=== PATIENT | female | born 1970 | race Caucasian/White ===

== ENCOUNTER 2021-04-20 20:36 | Inpatient (IN) | payer BC, OTHER ==
[~2021-04-20] VITALS: Ht 154.9 cm; Wt 97.0 kg
[2021-04-20] MEDS ORDERED: ALBUTEROL 0.083% 2.5 MG/3 ML INH IH ONE ×2 (20:59→22:00)
[2021-04-20] MEDS ORDERED: IPRATROPIUM/ALBUTEROL SULFATE 3 ML SOLUTION IH PRN (21:00)
[2021-04-20] MEDS ORDERED: MAGNESIUM 2GM PREMIX 50ML 50 ML IV SCH (21:00)
[2021-04-20] MEDS ORDERED: IPRATROPIUM/ALBUTEROL SULFATE 3 ML SOLUTION IH ONE (21:08)
[2021-04-20 21:20] LABS: BASOPHILS % (AUTO) 0.6 % (0.0-5.0); EOSINOPHILS % (AUTO) 1.6 % (0.0-8.0); HEMATOCRIT 39.3 % (36-48); LYMPHOCYTES % (AUTO) 8.8 % (21.0-51.0); MEAN CORPUSCULAR HGB CONC 32.3 g/dL (32.0-36.0); MEAN CORPUSCULAR VOLUME 92.9 fL (79-99); MONOCYTES % (AUTO) 4.3 % (3.0-13.0); NEUTROPHILS % (AUTO) 84.4 % (40.0-77.0); PLATELET COUNT (AUTO) 242 K/uL (130-400); RED BLOOD CELL COUNT(AUTO) 4.23 MIL/uL (4.00-5.50); RED CELL DISTRIBUTION WIDTH 13.6 % (11.0-15.5); WHITE BLOOD COUNT (AUTO) 6.8 K/uL (4.8-10.8)
[2021-04-20 21:26] LABS: ABG BASE EXCESS -5.7 mmol/L (-2.0-3.0); ABG HCO3 18.9 mmol/L (21.0-28.0); ABG OXYGEN SATURATION 97.7 % (95.0-99.0); ABG PCO2 35 mmHg (32-45)
[2021-04-20 21:36] LABS: CREATININE 0.8 mg/dL (0.5-1.5); POTASSIUM 4.4 mmol/L (3.5-5.1)
[2021-04-20 21:43] LABS: ALBUMIN 3.8 g/dL (3.5-5.0); BILIRUBIN,TOTAL 0.6 mg/dL (0.2-1.0); MAGNESIUM 2.3 mg/dL (1.80-2.40); TOTAL PROTEIN, SERUM 7.8 g/dL (6.0-8.3)
[2021-04-20] MEDS ORDERED: SOLU-MEDROL 125MG VIAL IVP ONE (22:00)
[2021-04-20] MEDS ORDERED: 0.9%NACL 1000ML 1,000 ML IV ONE (22:00)
[2021-04-21] MEDS ORDERED: IPRATROPIUM/ALBUTEROL SULFATE 3 ML SOLUTION IH PRN
[2021-04-21] MEDS ORDERED: NITROGLYCERIN 0.4 MG SL TAB SL PRN
[2021-04-21] MEDS ORDERED: ACETAMINOPHEN 325 MG TAB PO PRN ×2
[2021-04-21] MEDS ORDERED: ONDANSETRON 4MG INJ IV PRN
[2021-04-21] MEDS: IPRATROPIUM/ALBUTEROL SULFATE 3 ML SOLUTION IH SCH ×5 (01:31→23:00)
[2021-04-21 02:59] LABS: HEMOGLOBIN A1C 5.9 % (4.0-6.0)
[2021-04-21 04:55] VITALS: BP 171/89
[2021-04-21 05:50] VITALS: BP 160/87
[2021-04-21 06:30] LABS: BASOPHILS % (AUTO) 0.2 % (0.0-5.0); HEMATOCRIT 37.9 % (36-48); LYMPHOCYTES % (AUTO) 8.5 % (21.0-51.0); MEAN CORPUSCULAR HEMOGLOBIN 30.2 pg (27.0-33.0); MEAN CORPUSCULAR HGB CONC 32.7 g/dL (32.0-36.0); MEAN CORPUSCULAR VOLUME 92.2 fL (79-99); PLATELET COUNT (AUTO) 224 K/uL (130-400); RED BLOOD CELL COUNT(AUTO) 4.11 MIL/uL (4.00-5.50); RED CELL DISTRIBUTION WIDTH 13.7 % (11.0-15.5); WHITE BLOOD COUNT (AUTO) 6.2 K/uL (4.8-10.8)
[2021-04-21 06:32] LABS: ABG BASE EXCESS -2.7 mmol/L (-2.0-3.0); ABG HCO3 21.9 mmol/L (21.0-28.0); ABG OXYGEN SATURATION 94.5 % (95.0-99.0); ABG PCO2 37 mmHg (32-45)
[2021-04-21 06:55] LABS: INR 1.06 (0.85-1.15); PROTHROMBIN TIME 11.5 SEC (9.6-11.6)
[2021-04-21 06:56] LABS: PARTIAL THROMBOPLASTIN TIME 25.1 SEC (26.3-35.5)
[2021-04-21 07:06] LABS: ALBUMIN 3.7 g/dL (3.5-5.0); BILIRUBIN,TOTAL 0.4 mg/dL (0.2-1.0); CREATININE 0.7 mg/dL (0.5-1.5); MAGNESIUM 2.5 mg/dL (1.80-2.40); POTASSIUM 3.9 mmol/L (3.5-5.1); TOTAL PROTEIN, SERUM 7.5 g/dL (6.0-8.3)
[2021-04-21 08:05] VITALS: BP 132/82
[2021-04-21] MEDS: ENOXAPARIN SODIUM 40 MG/0.4 ML SYRINGE SQ SCH (08:49)
[2021-04-21] MEDS ORDERED: FAMOTIDINE 20MG TAB PO SCH (09:00)
[2021-04-21] MEDS ORDERED: SOLU-MEDROL 125MG VIAL IVP SCH (10:00)
[2021-04-21 10:57] VITALS: BP 145/89
[2021-04-21] MEDS ORDERED: ALBUTEROL 0.083% 2.5 MG/3 ML INH IH PRN (11:00)
[2021-04-21] MEDS: BUDESONIDE 0.5 MG/2 ML INH IH SCH ×2 (11:36→23:00)
[2021-04-21] MEDS: PANTOPRAZOLE 40 MG TAB DR PO SCH (11:38)
[2021-04-21] MEDS: CETIRIZINE HCL 5 MG TABLET PO SCH (11:54)
[2021-04-21] MEDS: MONTELUKAST SODIUM 10 MG TAB PO SCH (11:54)
[2021-04-21] MEDS ORDERED: METH4TAB15 PO (12:15)
[2021-04-21] MEDS ORDERED: ADV250 IH (12:20)
[2021-04-21] MEDS ORDERED: CEFU500T67 PO (12:20)
[2021-04-21] MEDS ORDERED: ALBU0.63 IH (12:20)
[2021-04-21] MEDS ORDERED: IPRA3AMP24 IH (12:20)
[2021-04-21] MEDS ORDERED: GUAI-1211 PO (12:20)
[2021-04-21] MEDS ORDERED: MONT10TA32 PO (12:20)
[2021-04-21] MEDS: FLUTICASONE PROPIONATE 50MCG/SPRAY 16 GM BOTTLE EN SCH ×2 (13:43→21:44)
[2021-04-21 16:36] VITALS: BP 157/94
[2021-04-21 20:00] VITALS: BP 151/64
[2021-04-21] MEDS: SOLU-MEDROL 125MG VIAL IVP SCH (21:44)
[2021-04-22] VITALS: BP 123/69
[2021-04-22 04:00] VITALS: BP 116/78
[2021-04-22 05:41] LABS: HEMATOCRIT 38.5 % (36-48); MEAN CORPUSCULAR HEMOGLOBIN 29.5 pg (27.0-33.0); MEAN CORPUSCULAR HGB CONC 31.4 g/dL (32.0-36.0); MEAN CORPUSCULAR VOLUME 93.9 fL (79-99); RED BLOOD CELL COUNT(AUTO) 4.1 MIL/uL (4.00-5.50); RED CELL DISTRIBUTION WIDTH 13.9 % (11.0-15.5); WHITE BLOOD COUNT (AUTO) 9.8 K/uL (4.8-10.8)
[2021-04-22] MEDS: PANTOPRAZOLE 40 MG TAB DR PO SCH (05:50)
[2021-04-22 06:12] LABS: CREATININE 0.9 mg/dL (0.5-1.5); POTASSIUM 4.4 mmol/L (3.5-5.1)
[2021-04-22] MEDS: IPRATROPIUM/ALBUTEROL SULFATE 3 ML SOLUTION IH SCH ×3 (07:23→18:23)
[2021-04-22] MEDS: BUDESONIDE 0.5 MG/2 ML INH IH SCH (07:23)
[2021-04-22 08:06] VITALS: BP 134/78
[2021-04-22] MEDS: CETIRIZINE HCL 5 MG TABLET PO SCH (08:37)
[2021-04-22] MEDS: MONTELUKAST SODIUM 10 MG TAB PO SCH (08:37)
[2021-04-22] MEDS: ENOXAPARIN SODIUM 40 MG/0.4 ML SYRINGE SQ SCH (08:38)
[2021-04-22] MEDS: SOLU-MEDROL 125MG VIAL IVP SCH (08:38)
[2021-04-22] MEDS: FLUTICASONE PROPIONATE 50MCG/SPRAY 16 GM BOTTLE EN SCH (08:52)
[2021-04-22] MEDS ORDERED: MONT10TA32 PO (09:40)
[2021-04-22] MEDS ORDERED: PRED20TA3 PO (09:40)
[2021-04-22 13:16] VITALS: BP 136/79
[2021-04-22 16:29] VITALS: BP 140/75
== END 2021-04-22 18:27 | disposition home or self-care (01) | DRG 202 ==
LOC: EDH 20:36 → EDHIP 23:34 → 3CH 04-21 03:44
PROVIDERS: ADMIT Hospitalist; ATTEND Hospitalist
PROC: 5A0935A Assistance with Respiratory Ventilation, Less than 24 Consecutive Hours, High Flow/Velocity Cannula (ICD-10-PCS; principal; 2021-04-20)
DX: J45.51 Severe persistent asthma with (acute) exacerbation (principal); Z68.41 Body mass index [BMI] 40.0-44.9, adult; E66.01 Morbid (severe) obesity due to excess calories; Z20.822 Contact with and (suspected) exposure to COVID-19; K21.9 Gastro-esophageal reflux disease without esophagitis; R00.0 Tachycardia, unspecified; Z88.8 Allergy status to other drugs, medicaments and biological substances; Z82.3 Family history of stroke; Z83.3 Family history of diabetes mellitus; Z82.49 Family history of ischemic heart disease and other diseases of the circulatory system
CPT/HCPCS: 36415; 36600; 71045; 80048; 80053; 82803; 82948; 83036; 83735; 83880; 84443; 85025; 85027; 85610; 85730; 87071; 87077; 87186; 87205; 87635; 93005; 94640; 94664; C9803; G0378; J1650; J2930; J3475; J7030